=== PATIENT | female | born 1930 | race Caucasian/White ===

== ENCOUNTER → 2017-05-28 | Outpatient (CLI) | payer OTHER ==
[2015-05-22 14:54] VITALS: BP 146/56
[~2017-05-28] MED LIST: AMLO10TA2 PO; AMLO5TAB2 PO; CALC500T30 PO; DICY10CA3 PO; DILT180C2 PO; FENO160T PO; LACT1CAP12 PO; LISI10TA2 PO; MAGN250T10 PO; METO-239 PO; METO-247 PO; MULT-18 PO; OMEG500C PO; OXYB5TAB7 PO; PANT40TA3 PO; RANI150C PO; SOLI10TA2 PO; VITA400C36 PO
--- NOTE | 2017-05-28 11:20 | CARD ---
APPROVED REPORT EXAM: Two-dimensional and M-mode echocardiogram with Doppler and color Doppler. Other Information Quality : Good INDICATION Hypertension/HCVD 2D DIMENSIONS RVDd2.6 (2.9-3.5cm)Left Atrium(2D)3.7 (1.6-4.0cm) IVSd1.5 (0.7-1.1cm)Aortic Root(2D)3.2 (2.0-3.7cm) LVDd4.6 (3.9-5.9cm)LVOT Diameter2.0 (1.8-2.4cm) PWd1.0 (0.7-1.1cm)LVDs2.8 (2.5-4.0cm) FS (%) 30.0 %SV65.5 ml LVEF(%)60.0 (>50%) Aortic Valve AoV Peak Lizandro.161.5cm/sAoV VTI35.0cm AO Peak GR.10.4mmHgLVOT Peak Lizandro.95.2cm/s AO Mean GR.6mmHgAVA (VMAX)1.90cm2 LAMAR (VTI)2.20cm2 Mitral Valve MV E Oocdzlnl08.2cm/sMV DECEL [id number] MV A Wshqdrak36.9cm/sE/A Ratio0.7 Tricuspid Valve TR P. Festydzh113dv/sRAP DAIAEPPM6kbAx TR Peak Gr.60khAcHOEG10qeVg Pulmonary Vein S1 Akjmbjki05.5cm/sD2 Dupuvtej84.9cm/s LEFT VENTRICLE The left ventricle is normal size. There is mild to moderate asymmetric septal hypertrophy. The left ventricular systolic function is normal. The Ejection Fraction is 55-60%. There is normal LV segmenta l wall motion. Transmitral Doppler flow pattern is Grade I-abnormal relaxation pattern. RIGHT VENTRICLE The right ventricle is normal size. The right ventricular systolic function is normal. ATRIA The left atrium size is normal. The right atrium size is normal. The interatrial septum is intact wit h no evidence for an atrial septal defect or patent foramen ovale as noted on 2-D or Doppler imaging. AORTIC VALVE The aortic valve is calcified but opens well. Doppler and Color Flow revealed no significant aortic r egurgitation. There is no significant aortic valvular stenosis. MITRAL VALVE The mitral valve is normal in structure and function. There is no evidence of mitral valve prolapse. There is no mitral valve stenosis. Doppler and Color-flow revealed trace mitral regurgitation. TRICUSPID VALVE The tricuspid valve is normal in structure and function. Doppler and Color Flow revealed trace to mil d tricuspid regurgitation. There is mild pulmonary hypertension. The PA pressure was estimated at 33 mmHg. There is no tricuspid valve stenosis. PULMONIC VALVE The pulmonary valve is normal in structure and function. Doppler and Color Flow revealed trace pulmon ic valvular regurgitation. There is no pulmonic valvular stenosis. GREAT VESSELS The aortic root is normal in size. The ascending aorta is normal in size. The IVC is normal in size a nd collapses >50% with inspiration. PERICARDIAL EFFUSION There is no evidence of significant pericardial effusion. Critical Notification Critical Value: No <Conclusion> The left ventricular systolic function is normal. The Ejection Fraction is 55-60%. There is normal LV segmental wall motion. Transmitral Doppler flow pattern is Grade I-abnormal relaxation pattern. Trace mitral regurgitation. Trace to mild tricuspid regurgitation. The PA pressure was estimated at 33 mmHg. There is no evidence of significant pericardial effusion.
== END | disposition home or self-care (01) ==
LOC: ECHO 08:47
PROVIDERS: ATTEND Internal Medicine Cardiovascular Disease
DX: I11.9 Hypertensive heart disease without heart failure (principal); I27.20 Pulmonary hypertension, unspecified; I07.1 Rheumatic tricuspid insufficiency
CPT/HCPCS: 93306